=== PATIENT | male | born 1980 | race Caucasian/White ===

== ENCOUNTER 2019-11-26 15:33 | Emergency (ER) | payer BC, OTHER ==
[~2019-11-26] VITALS: Ht 177.8 cm; Wt 89.4 kg
[2019-11-26 15:46] VITALS: BP 129/76
[2019-11-26] MEDS ORDERED: OSLT75C PO (16:09)
--- NOTE | 2019-11-26 16:10 | ED Cough/URI ---
General Chief Complaint: Cough/Cold/Flu Symptoms Stated Complaint: BAKC PAIN,SORE THROAT, Nursing Triage Note: PT AMBULATE TO TRIAGE WITH C/O COUGH, BODY ACHES. PT DENIES N/V/FEVER. PT STATES SYMPTOMS STARTED LAST NIGHT. Sepsis Screen: No Definite Risk History of Present Illness Date Seen by Provider: Nov 26, 2019 Time Seen by Provider: 16:07 Initial Comments 39-year-old male presents with cough, body aches, nausea, fever, sore throat. Patient's and kids both have similar symptoms. They do report that their son tested positive for influenza A. Patient symptoms started last night. Is not having shortness of breath, chest pain vomiting or diarrhea Allergies and Home Medications Patient Home Medication List Home Medication List Reviewed: Yes Review of Systems Review of Systems Constitutional: chills, fever, malaise EENTM: throat pain Respiratory: cough Cardiovascular: No chest pain Gastrointestinal: No diarrhea; nausea; No vomiting Genitourinary: no symptoms reported Musculoskeletal: see HPI Skin: no symptoms reported Past Mlesvqh-Usswcf-Vskxsx Hx Past Med/Social Hx: Reviewed Nursing Past Med/Soc Hx Patient Social History Alcohol Use: Denies Use Recreational Drug Use: No Smoking Status: Never a Smoker 2nd Hand Smoke Exposure: No Recent Foreign Travel: No Contact w/Someone Who Travel: No Recent Infectious Disease Expo: No Recent Hopitalizations: No Physical Abuse: No Sexual Abuse: No Mistreated: No Fear: No Seasonal Allergies Seasonal Allergies: No Past Medical History Surgeries: No Respiratory: No Cardiac: No Neurological: No Genitourinary: No Gastrointestinal: No Musculoskeletal: No Endocrine: No HEENT: No Cancer: No Psychosocial: No Integumentary: No Blood Disorders: No Physical Exam Vital Signs - First Documented 11/26/19 15:46 Temp 37.3 Pulse 81 Resp 18 B/P (MAP) 129/76 (93) O2 Delivery Room Air Capillary Refill : Less Than 3 Seconds Height: '" Weight: lbs. oz. 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, normal mood/affect, oriented x 3 Skin: normal color, warm/dry Progress/Results/Core Measures Suspected Sepsis Recent Fever Within 48 Hours: No Infection Criteria Present: None New/Unexplained Altered Menta: No Sepsis Screen: No Definite Risk SIRS Temperature: Pulse: 81 Respiratory Rate: 18 Blood Pressure 129 /76 Mean: 93 Results/Orders Vital Signs/I&O 11/26/19 11/26/19 15:46 15:49 Temp 37.3 Pulse 81 Resp 18 B/P (MAP) 129/76 (93) O2 Delivery Room Air Room Air Capillary Refill : Less Than 3 Seconds Blood Pressure Mean: 93 Departure Impression Primary Impression: Influenza A Disposition: 01 HOME, SELF-CARE Condition: Stable Departure-Patient Inst. Referrals: NO,LOCAL PHYSICIAN (PCP/Family) Primary Care Physician Patient Instructions: Flu, Adult (DC) Scripts Oseltamivir Phosphate (Tamiflu) 75 Mg Cap 75 MG PO BID, #10 CAP Prov: YANCI MENDOZA DO 11/26/19 YANCI MENDOZA DO Nov 26, 2019 16:09
== END 2019-11-26 16:38 | disposition home or self-care (01) ==
LOC: ER 15:35
DX: J10.1 Influenza due to other identified influenza virus with other respiratory manifestations (principal)
CPT/HCPCS: 87804

== ENCOUNTER 2022-05-30 21:54 | Day surgery (SDC) | payer BC ==
[~2022-05-30] VITALS: Ht 178 cm; Wt 97.7 kg
[~2022-05-30 21:54] MED LIST: OSLT75C PO
[2022-05-30 22:56] LABS: CLARITY,URINE CLEAR; COLOR,URINE YELLOW; GLUCOSE, URINE (UA) NEGATIVE (NEGATIVE); KETONES,URINE NEGATIVE (NEGATIVE); LEUKOCYTE ESTERASE ,URINE NEGATIVE (NEGATIVE); NITRITE,URINE NEGATIVE (NEGATIVE); PH,URINE 6.5 (5-9); PROTEIN,URINE TRACE (NEGATIVE)
[2022-05-30 22:59] LABS: BASOPHILS % (AUTO) 1 % (0-10); EOSINOPHILS # (AUTO) 0.1 10^3/uL (0.0-0.3); EOSINOPHILS % (AUTO) 2 % (0-10); HEMATOCRIT 44 % (40-54); HEMOGLOBIN 15.1 g/dL (13.3-17.7); LYMPHOCYTES # (AUTO) 1.6 10^3/uL (1.0-4.0); LYMPHOCYTES % (AUTO) 26 % (12-44); MEAN CORPUSCULAR HEMOGLOBIN 30 pg (25-34); MEAN CORPUSCULAR HGB CONC 34 g/dL (32-36); MEAN CORPUSCULAR VOLUME 89 fL (80-99); MEAN PLATELET VOLUME 10.7 fL (9.0-12.2); MONOCYTES # (AUTO) 0.7 10^3/uL (0.0-1.0); MONOCYTES % (AUTO) 11 % (0-12); NEUTROPHILS # (AUTO) 3.7 10^3/uL (1.8-7.8); NEUTROPHILS % (AUTO) 60 % (42-75); PLATELET COUNT 255 10^3/uL (130-400); WHITE BLOOD COUNT 6.1 10^3/uL (4.3-11.0)
[2022-05-30 23:06] LABS: ALBUMIN 4.3 GM/DL (3.2-4.5)
[2022-05-30 23:07] LABS: POTASSIUM 4.2 MMOL/L (3.6-5.0)
[2022-05-30 23:08] LABS: CALCIUM 9.5 MG/DL (8.5-10.1)
[2022-05-30 23:09] LABS: TOTAL PROTEIN 7.2 GM/DL (6.4-8.2)
[2022-05-30 23:11] LABS: BILIRUBIN,TOTAL 0.9 MG/DL (0.1-1.0)
[2022-05-30 23:13] LABS: CREATININE SERUM 1.64 MG/DL (0.60-1.30)
[2022-05-30 23:16] LABS: BILIRUBIN,URINE NEGATIVE (NEGATIVE)
[2022-05-30 23:20] LABS: BACTERIA,URINE NEGATIVE /HPF; SQUAMOUS EPITHELIAL CELL,UR 0-2 /HPF
[2022-05-31] VITALS (13 sets, daily range): BP systolic 122–161; BP diastolic 79–100
[2022-05-31] MEDS ORDERED: HOLD METFORMIN - RECEIVED CONTRAST 20 ML VIAL IV SCH (01:30)
[2022-05-31] MEDS ORDERED: NS 100 ML (IVPB) BAG IV ONE (01:30)
[2022-05-31] MEDS ORDERED: IOHEXOL 350 MG/ML 100 ML (OMNIPAQUE 350) VIAL IV ONE (01:30)
[2022-05-31] MEDS ORDERED: LACTATED RINGERS 1,000 ML IV ONE (02:24)
[2022-05-31] MEDS ORDERED: KETOROLAC 30 MG/ML VIAL IV PRN (02:45)
[2022-05-31] MEDS ORDERED: ONDANSETRON 4 MG/2 ML (SDV) Z0FRAN IV PRN (02:45)
[2022-05-31] MEDS ORDERED: fentaNYL INJ 100 MCG/2 ML AMP IV PRN (02:45)
[2022-05-31] MEDS: LACTATED RINGERS 1,000 ML IV SCH ×3 (03:02→14:43)
--- NOTE | 2022-05-31 05:26 | ED Abdominal Pain ---
General Chief Complaint: Abdominal/GI Problems Stated Complaint: INCARCERATED UMBILICAL HERNIA Nursing Triage Note: C/O PROTRUDING BELLY BUTTON, & CHANGE IN ABDOMINAL SHAPE WITH SITUPS X1 WEEK. DENIES GI/ SYMPTOMS. 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 NO UNUSUAL ACTIVITY OR LIFTING ANYTHING MORE THAN NORMAL NO HISTORY OF SIMILAR NO NAUSEA/VOMITING/DIARRHEA NO FEVER NO URINARY SYMPTOMS PT HAS NO MEDICAL PROBLEMS OF ANY KIND, AND DOES NOT TAKE ANY MEDICATIONS NO PRIOR ABDOMINAL SURGERIES HAS NOT SOUGHT CARE UNTIL TONIGHT HAS NOT TAKEN ANYTHING FOR PAIN SYMPTOMS ARE NOT ANY DIFFERENT TONIGHT, STATES HE JUST THOUGHT HE SHOULD GET IT CHECKED BEFORE HE DOES HIS "PT" TEST NEXT WEEK. PCP: NONE Allergies and Home Medications Allergies Coded Allergies: No Known Drug Allergies (Unverified , 05/30/22) Patient Home Medication List Home Medication List Reviewed: Yes No Active Prescriptions or Reported Meds Review of Systems Review of Systems Constitutional: no symptoms reported EENTM: No Symptoms Reported Respiratory: No Symptoms Reported Cardiovascular: No Symptoms Reported Gastrointestinal: See HPI Genitourinary: No Symptoms Reported Musculoskeletal: no symptoms reported Skin: no symptoms reported Psychiatric/Neurological: No Symptoms Reported Endocrine: No Symptoms Reported Hematologic/Lymphatic: No Symptoms Reported Past Uoxkdnd-Nfzrsb-Kldpqe Hx Patient Social History Tobacco Use?: No Smoking Status: Never a Smoker Smokeless Tobacco Frequency: Never a User Use of E-Cig and/or Vaping dev: No Substance use?: No Alcohol Use?: No Pt feels they are or have been: No Immunizations Up To Date Tetanus Booster (TDap): Less than 5yrs First/Initial COVID19 Vaccinat: 10/17 Second COVID19 Vaccination Aubrey: 11/17 Seasonal Allergies Seasonal Allergies: No Past Medical History Surgery/Hospitalization HX: DENIES Surgeries: Yes (WISDOM TEETH) Respiratory: No (HAD COVID IN THE LAST YEAR--NO HOSPITALIZATION) Cardiac: No Neurological: No Genitourinary: No Gastrointestinal: No Musculoskeletal: No Endocrine: No HEENT: No Cancer: No Psychosocial: No Integumentary: No Blood Disorders: No Physical Exam Vital Signs Vital Signs - First Documented 05/30/22 22:28 Temp 37.0 Pulse 62 Resp 16 B/P (MAP) 137/89 (105) Pulse Ox 99 O2 Delivery Room Air Capillary Refill : Less Than 3 Seconds Height/Weight/BMI Height: '" Weight: lbs. oz. kg; 30.83 BMI Method: General Appearance: WD/WN, no apparent distress, other (STUTTERING SPEECH) HEENT: PERRL/EOMI Neck: normal inspection Respiratory: normal breath sounds, no respiratory distress, no accessory muscle use Cardiovascular: regular rate, rhythm, no murmur Gastrointestinal: normal bowel sounds, soft; No distended, No guarding, No rebound; tenderness (MILD PERIUMBILICAL TENDERNESS. ), hernia (SOFT UMBILICAL HERNIA THAT EASILY REDUCES, BUT PT HAD MUCH DISCOMFORT WITH IT. 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, no motor/sensory deficits, alert, normal mood/affect, oriented x 3 Skin: normal color, warm/dry Progress/Results/Core Measures Results/Orders Lab Results Laboratory Tests Test 05/30/22 22:45 05/30/22 22:50 Range/Units White Blood Count 6.1 4.3-11.0 10^3/uL Red Blood Count 4.96 4.30-5.52 10^6/uL Hemoglobin 15.1 13.3-17.7 g/dL Hematocrit 44 40-54 % Mean Corpuscular Volume 89 80-99 fL Mean Corpuscular Hemoglobin 30 25-34 pg Mean Corpuscular Hemoglobin Concent 34 32-36 g/dL Red Cell Distribution Width 12.8 10.0-14.5 % Platelet Count 255 130-400 10^3/uL Mean Platelet Volume 10.7 9.0-12.2 fL Immature Granulocyte % (Auto) 0 % Neutrophils (%) (Auto) 60 42-75 % Lymphocytes (%) (Auto) 26 12-44 % Monocytes (%) (Auto) 11 0-12 % Eosinophils (%) (Auto) 2 0-10 % Basophils (%) (Auto) 1 0-10 % Neutrophils # (Auto) 3.7 1.8-7.8 10^3/uL Lymphocytes # (Auto) 1.6 1.0-4.0 10^3/uL Monocytes # (Auto) 0.7 0.0-1.0 10^3/uL Eosinophils # (Auto) 0.1 0.0-0.3 10^3/uL Basophils # (Auto) 0.0 0.0-0.1 10^3/uL Immature Granulocyte # (Auto) 0.0 0.0-0.1 10^3/uL Sodium Level 140 135-145 MMOL/L Potassium Level 4.2 3.6-5.0 MMOL/L Chloride Level 105 98-107 MMOL/L Carbon Dioxide Level 24 21-32 MMOL/L Anion Gap 11 5-14 MMOL/L Blood Urea Nitrogen 21 H 7-18 MG/DL Creatinine 1.64 H 0.60-1.30 MG/DL Estimat Glomerular Filtration Rate 54 BUN/Creatinine Ratio 13 Glucose Level 99 70-105 MG/DL Calcium Level 9.5 8.5-10.1 MG/DL Corrected Calcium 9.3 8.5-10.1 MG/DL Total Bilirubin 0.9 0.1-1.0 MG/DL Aspartate Amino Transf (AST/SGOT) 32 5-34 U/L Alanine Aminotransferase (ALT/SGPT) 59 H 0-55 U/L Alkaline Phosphatase 86 40-136 U/L Total Protein 7.2 6.4-8.2 GM/DL Albumin 4.3 3.2-4.5 GM/DL Amylase Level 53 25-125 U/L Lipase 24 8-78 U/L Urine Color YELLOW Urine Clarity CLEAR Urine pH 6.5 5-9 Urine Specific Devine >=1.030 1.016-1.022 Urine Protein TRACE H NEGATIVE Urine Glucose (UA) NEGATIVE NEGATIVE Urine Ketones NEGATIVE NEGATIVE Urine Nitrite NEGATIVE NEGATIVE Urine Bilirubin NEGATIVE NEGATIVE Urine Urobilinogen 2.0 < = 1.0 MG/DL Urine Leukocyte Esterase NEGATIVE NEGATIVE Urine RBC (Auto) NEGATIVE NEGATIVE Urine RBC NONE /HPF Urine WBC NONE /HPF Urine Squamous Epithelial Cells 0-2 /HPF Urine Crystals NONE /LPF Urine Bacteria NEGATIVE /HPF Urine Casts NONE /LPF Urine Mucus MODERATE H /LPF Urine Culture Indicated NO My Orders Orders - AMBROSIO CADET DO Ed Iv/Invasive Line Start (05/30/22 22:38) Amylase (05/30/22 22:38) Cbc With Automated Diff (05/30/22 22:38) Comprehensive Metabolic Panel (05/30/22 22:38) Lipase (05/30/22 22:38) Ua Culture If Indicated (05/30/22 22:38) Ct Abdomen/Pelvis W (05/31/22 00:01) Iohexol Injection (Omnipaque 350 Mg/Ml 1 (05/31/22 01:30) Received Contrast (Hold Metformin- Contr (05/31/22 01:30) Ns (Ivpb) (Sodium Chloride 0.9% Ivpb Bag (05/31/22 01:30) Medications Given in ED Current Medications Medications Dose Ordered Sig/Aditya Route Start Time Stop Time Status Last Admin Dose Admin Iohexol 100 ml ONCE ONCE IV 05/31/22 01:30 05/31/22 01:34 DC 05/31/22 01:26 100 ML Sodium Chloride 100 ml ONCE ONCE IV 05/31/22 01:30 05/31/22 01:34 DC 05/31/22 01:26 80 ML Vital Signs/I&O 05/30/22 05/31/22 22:28 00:10 Temp 37.0 Pulse 62 61 Resp 16 14 B/P (MAP) 137/89 (105) 138/56 (83) Pulse Ox 99 100 O2 Delivery Room Air Room Air Blood Pressure Mean: 112 Progress Progress Note : Progress Note UNEVENTFUL ER STAY PT DECLINED ANY PAIN MEDICATIONS DURING ER STAY Diagnostic Imaging Comments ABDOMEN XRAYS--NO ACUTE PROCESS, PENDING RADIOLOGIST REVIEW CT ABDOMEN/PELVIS--PER STAT RAD VIA FAX AT 0141 -SMALL UMBILICAL HERNIA CONTAINING FAT, THERE ARE SOME INFLAMMATORY CHANGES NOTED WITHIN THE FAT, MAY REPRESENT INCARCERATION OF THE FAT. -FATTY INFILTRATION OF LIVER -MILD SPLENOMEGALY Reviewed: Reviewed by Me Departure Communication (Admissions) 0150--SPOKE WITH DR. PRATHER, ACCEPTS PT FOR ADMIT. ORDERS NOTED. Impression Primary Impression: Incarcerated umbilical hernia Disposition: ADMITTED INPATIENT Condition: Stable Admissions Decision to Admit Reason: Admit from ER (General) Decision to Admit/Date: May 31, 2022 Time/Decision to Admit Time: 01:50 Departure-Patient Inst. Referrals: NO,LOCAL PHYSICIAN (PCP) Primary Care Physician Scripts No Active Prescriptions or Reported Meds AMBROSIO CADET DO May 31, 2022 05:26
--- NOTE | 2022-05-31 07:30 | Diagnostic Imaging Report ---
EXAMINATION: CT abdomen and pelvis with intravenous contrast. TECHNIQUE: Multiple contiguous axial images were obtained through the abdomen and pelvis after the uneventful administration of intravenous contrast. All CT scans use one or more of the following dose optimizing techniques: automated exposure control, MA and/or KvP adjustment based on patient size and exam type or iterative reconstruction. HISTORY: Abdominal pain. Hernia. COMPARISON: None available. FINDINGS: The heart is unremarkable. The included lung bases are clear. There is hepatic steatosis. No focal hepatic lesions are seen. The gallbladder is nondistended. The portal vein is patent. The spleen, pancreas, adrenal glands, and kidneys have a normal appearance. There is no pathologically enlarged mesenteric or retroperitoneal adenopathy. The bowel loops are nondilated. There is no free fluid or free air. No acute osseous abnormalities. Ureters and bladder are grossly normal. There is no free air, loculated collection, or adenopathy in the pelvis. IMPRESSION: 1. No evidence of bowel obstruction. No free fluid or free air. 2. Small fat-containing periumbilical hernia. No entrapped loops of bowel are visualized. A small amount of associated inflammation is seen within the hernia sac. 3. Hepatic steatosis. No focal hepatic lesions. Dictated by: Dictated on workstation # [id number]
--- NOTE | 2022-05-31 11:09 | Consultation - Surgery ---
ALEXIS WRIGHT 05/31/22 1109: History of Present Illness History of Present Illness Patient Consulted On(josé luis/time) 05/31/22 11:09 Date Seen by Provider: May 31, 2022 Time Seen by Provider: 11:20 History of Present Illness 41yo male presented to the [facility] ED on 05/30 because he thought he had a hernia. He is currently not in any pain and stated the only time he experienced pain was when the ED physician was attempting to reduce the hernia last night. Allergies and Home Medications Allergies Coded Allergies: No Known Drug Allergies (Unverified , 05/30/22) Patient Home Medication List No Active Prescriptions or Reported Meds Past Xhrjvfr-Tdmqzt-Rimull Hx Patient Social History Smoking Status: Never a Smoker 2nd Hand Smoke Exposure: No Recent Hopitalizations: No Alcohol Use?: No Have you traveled recently?: No Immunizations Up To Date Tetanus Booster (TDap): Less than 5yrs Seasonal Allergies Seasonal Allergies: No Surgeries History of Surgeries: Yes (WISDOM TEETH) Respiratory History of Respiratory Disorde: No (HAD COVID IN THE LAST YEAR--NO HOSPITALIZATION) Cardiovascular History of Cardiac Disorders: No Neurological History of Neurological Disord: No Genitourinary History of Genitourinary Disor: No Gastrointestinal History of Gastrointestinal Di: No Musculoskeletal History of Musculoskeletal Dis: No Endocrine History of Endocrine Disorders: No HEENT History of HEENT Disorders: No Cancer History of Cancer: No Psychosocial History of Psychiatric Problem: No Integumentary History of Skin or Integumenta: No Blood Transfusions History of Blood Disorders: No Family Medical History Significant Family History: Diabetes (father T2DM, thinks mom did too), Other Conditions/Hx (No HTN, paternal grandpa had colon cancer) Review of Systems-General Constitutional: No chills, No fever Respiratory: No short of breath Cardiovascular: No chest pain Gastrointestinal: No abdominal pain, No hematemesis, No melena, No nausea, No vomiting Physical Exam-General Problems Physical Exam Vital Signs Vital Signs - First Documented 05/30/22 22:28 Temp 37.0 Pulse 62 Resp 16 B/P (MAP) 137/89 (105) Pulse Ox 99 O2 Delivery Room Air Capillary Refill : Less Than 3 Seconds General Appearance: no apparent distress, obese Neck: non-tender; No lymphadenopathy (R), No lymphadenopathy (L) Respiratory: lungs clear, normal breath sounds, no respiratory distress, no accessory muscle use Cardiovascular: regular rate, rhythm, no murmur Peripheral Pulses: 2+ Radial Pulses (R), 2+ Radial Pulses (L) Gastrointestinal: non tender, soft, hernia (umbilical, no signs of ischemia, no discharge, no erythema) Neurologic/Psychiatric: alert, oriented x 3, other (stutter) Data Review Labs Laboratory Tests 05/30/22 22:45: White Blood Count 6.1, Red Blood Count 4.96, Hemoglobin 15.1, Hematocrit 44, Mean Corpuscular Volume 89, Mean Corpuscular Hemoglobin 30, Mean Corpuscular Hemoglobin Concent 34, Red Cell Distribution Width 12.8, Platelet Count 255, Mean Platelet Volume 10.7, Immature Granulocyte % (Auto) 0, Neutrophils (%) (Auto) 60, Lymphocytes (%) (Auto) 26, Monocytes (%) (Auto) 11, Eosinophils (%) ( Auto) 2, Basophils (%) (Auto) 1, Neutrophils # (Auto) 3.7, Lymphocytes # (Auto) 1.6, Monocytes # (Auto) 0.7, Eosinophils # (Auto) 0.1, Basophils # (Auto) 0.0, Immature Granulocyte # (Auto) 0.0, Sodium Level 140, Potassium Level 4.2, Chloride Level 105, Carbon Dioxide Level 24, Anion Gap 11, Blood Urea Nitrogen 21H, Creatinine 1.64H, Estimat Glomerular Filtration Rate 54, BUN/Creatinine Ratio 13, Glucose Level 99, Calcium Level 9.5, Corrected Calcium 9.3, Total Bilirubin 0.9, Aspartate Amino Transf (AST/SGOT) 32, Alanine Aminotransferase (ALT/SGPT) 59H, Alkaline Phosphatase 86, Total Protein 7.2, Albumin 4.3, Amylase Level 53, Lipase 24 05/30/22 22:50: Urine Color YELLOW, Urine Clarity CLEAR, Urine pH 6.5, Urine Specific [place] >=1.030, Urine Protein TRACEH, Urine Glucose (UA) NEGATIVE, Urine Ketones NEGATIVE, Urine Nitrite NEGATIVE, Urine Bilirubin NEGATIVE, Urine Urobilinogen 2.0, Urine Leukocyte Esterase NEGATIVE, Urine RBC (Auto) NEGATIVE, Urine RBC NONE, Urine WBC NONE, Urine Squamous Epithelial Cells 0-2, Urine Crystals NONE, Urine Bacteria NEGATIVE, Urine Casts NONE, Urine Mucus MODERATEH, Urine Culture Indicated NO Assessment/Plan Assessment/Plan Assessment/Plan Umbilical hernia Surgery to repair umbilical hernia. Keep patient NPO. KATHY SUTHERLAND DO 05/31/22 1421: History of Present Illness History of Present Illness Time Seen by Provider: 12:46 History of Present Illness Surgery asked to admit pt for possible strangulated hernia. HPI per ED: PT ARRIVES VIA POV FROM HOME STATES HE THINKS HE HAS A HERNIA, PT IS IN THE AND EXERCISES ON A REGULAR BASIS, AND IS TO HAVE A "PT" TEST THIS WEEK, PT STATES FOR THE LAST FEW WEEKS WHEN HE DOES SIT UPS, HIS ABDOMEN CHANGES SHAPE--STATES HIS ABDOMEN LOOKS MUCH DIFFERENT THAN NORMAL WHEN HE DOES SIT UPS, AND HAS HAD SOME SORENESS TO MID ABDOMINAL AREA FOR THE FEW DAYS, HE HAS NOTICED THAT HIS BELLY BUTTON IS PROTRUDING AND IS SORE. NO UNUSUAL ACTIVITY OR LIFTING ANYTHING MORE THAN NORMAL, NO HISTORY OF SIMILAR, NO NAUSEA/VOMITING/DIARRHEA, NO FEVER, NO URINARY SYMPTOMS When I spoke to the patient and his today in his room he appeared comfortable. They state that they have only seen his protrusion of the bellybutton in the past few weeks. His states he has always had "an innie". He states the pain was more of a pulling that he has never had before any would not want to have again. But he only rated as a 6-7 out of 10 on a 1- 10 scale. It was worse with lifting. He denies that his abdomen was ever red, denied any vomiting or abdominal distention and no problems with bowel movements. He was also able to eat. Patient does not think he has ever been told he has a hernia before, he is in the and has a PT test coming up next week. Allergies and Home Medications Allergies Coded Allergies: No Known Drug Allergies (Unverified , 05/30/22) Patient Home Medication List Home Medication List Reviewed: Yes No Active Prescriptions or Reported Meds Past Wvkutvc-Mirfko-Ynmejs Hx Patient Social History Smoking Status: Never a Smoker Alcohol Use?: No Immunizations Up To Date Tetanus Booster (TDap): Less than 5yrs Surgeries History of Surgeries: Yes (lipoma removal) Respiratory History of Respiratory Disorde: No Cardiovascular History of Cardiac Disorders: No Neurological History of Neurological Disord: No Genitourinary History of Genitourinary Disor: No Gastrointestinal History of Gastrointestinal Di: No Musculoskeletal History of Musculoskeletal Dis: No Endocrine History of Endocrine Disorders: No HEENT History of HEENT Disorders: No Loss of Vision: Denies Hearing Impairment: Denies Cancer History of Cancer: No Psychosocial History of Psychiatric Problem: No Integumentary History of Skin or Integumenta: No Family Medical History Significant Family History: Diabetes (father T2DM, thinks mom did too), Other Conditions/Hx (No HTN, paternal grandpa had colon cancer) Review of Systems-General Constitutional: No chills, No fever, No weakness EENTM: No vision loss, No mouth swelling, No epistaxis Respiratory: No cough, No dyspnea on exertion, No short of breath Cardiovascular: No chest pain, No palpitations Gastrointestinal: abdominal pain; No constipation, No hematemesis, No melena, No nausea, No vomiting Genitourinary: No dysuria, No frequency, No hematuria Musculoskeletal: No joint pain, No muscle pain, No muscle stiffness Skin: No change in color, No change in hair/nails Psychiatric/Neurological: Denies Anxiety, Denies Depressed, Denies Seizure, Denies Tremors Physical Exam-General Problems Physical Exam General Appearance: no apparent distress, obese Eyes: Bilateral Eye PERRL, Bilateral Eye EOMI HEENT: pharynx normal; No scleral icterus (R), No scleral icterus (L); other (pt has mild stutter) Neck: non-tender, supple Respiratory: lungs clear, normal breath sounds, no respiratory distress, no accessory muscle use Cardiovascular: regular rate, rhythm, no murmur Peripheral Pulses: 2+ Radial Pulses (R), 2+ Radial Pulses (L) Gastrointestinal: non tender, soft, no organomegaly, hernia (umbilical, no signs of ischemia, no discharge, no erythema) Rectal: deferred Back: no CVA tenderness, no vertebral tenderness Extremities: no pedal edema, no calf tenderness, normal capillary refill Neurologic/Psychiatric: 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 TECHNIQUE: Multiple contiguous axial images were obtained through the abdomen and pelvis after the uneventful administration of intravenous contrast. All CT scans use one or more of the following dose optimizing techniques: automated exposure control, MA and/or KvP adjustment based on patient size and exam type or iterative reconstruction. HISTORY: Abdominal pain. Hernia. COMPARISON: None available. FINDINGS: The heart is unremarkable. The included lung bases are clear. There is hepatic steatosis. No focal hepatic lesions are seen. The gallbladder is nondistended. The portal vein is patent. The spleen, pancreas, adrenal glands, and kidneys have a normal appearance. There is no pathologically enlarged mesenteric or retroperitoneal adenopathy. The bowel loops are nondilated. There is no free fluid or free air. No acute osseous abnormalities. Ureters and bladder are grossly normal. There is no free air, loculated collection, or adenopathy in the pelvis. IMPRESSION: 1. No evidence of bowel obstruction. No free fluid or free air. 2. Small fat-containing periumbilical hernia. No entrapped loops of bowel are visualized. A small amount of associated inflammation is seen within the hernia sac. 3. Hepatic steatosis. No focal hepatic lesions. Dictated by: Dictated on workstation # [id number] Dict: 05/31/22718 Trans: 05/31/22729 [facility] [id number] Interpreted by: NOEL LEON DO Electronically signed by: NOEL LEON DO 05/31/2230 Assessment/Plan Assessment/Plan Assessment/Plan Incarcerated Umbilical hernia - possibly recently strangulated I had a long discussion with the patient and his going over their options to treat his current condition. One option would be to do nothing and send him home. A second option would be to go to surgery; laparoscopic umbilical herniorrhaphy with mesh placement possible open. I went over the CAT scan findings with the patient and his explaining the mild inflammation we saw the difference between reducible incarcerated and strangulated hernias. I also went over the difference between fixing it and not fixing it. Patient mentioned that he thinks he has a another hernia in the midline and based on what he is describing and his physical exam he has a diastases recti. I explained the difference between this and a real hernia. I explained that if he had never had pain he might not need to have this hernia repaired; but, now it is bulged out and caused pain which may have indicated that it was strangulated at one point. He also was questioning whether he would ever have the pulling sensation again and I explained to him that it is possible he could have the pulling sensation, but most likely he would not. We talked about mesh failure and what would happen if the mesh did not work. I told him that mesh fails about 3 to 5% of the time and if we only did suture repair that has a 50% failure rate. After giving patient all the options and answering all the questions they would like to proceed with surgery. I went over risks and complications not limited to pain, bleeding, infection, scar, damage to intestine and need for further procedure. All questions answered to their to their satisfaction. We will go to the operating room today he will get IV fluids, IV antibiotics on-call to the OR and then hopefully will be able to go home today. I reviewed the CT images myself and discussed case with ER physician. I think he may also have inguinal hernias and told them I would look during procedure. Supervisory-Addendum Brief Verification & Attestation Participated in pt care: history, MDM, physical Personally performed: exam, history, MDM, supervision of care Care discussed with: Medical Student Procedures: n/a Verification and Attestation of Medical Student E/M Service A medical student performed and documented this service. I then reviewed and verified all information documented by the medical student and made modifications to such information, when appropriate. I personally performed a physical exam, medical decision making and then discussed any differences between the notes and made revisions as necessary to create one note. Kathy Sutherland , 05/31/22 , 14:29 ALEXIS WRIGHT May 31, 2022 11:09 KATHY SUTHERLAND DO May 31, 2022 14:21
[2022-05-31] MEDS ORDERED: LIDOCAINE/EPI 2% 1:200,00 (XYLOCAINE) 20 ML VIAL ONE (13:54)
[2022-05-31] MEDS ORDERED: ceFAZolin INJECTION 2,000 MG in NS (IVPB) 50 ML IV SCH (14:00)
[2022-05-31] MEDS ORDERED: MIDAZOLAM 2 MG/2 ML (VERSED) VIAL ONE (14:20)
[2022-05-31] MEDS ORDERED: proPOfol 200 MG/20 ML (DIPRIVAN) VIAL IV ONE (14:20)
[2022-05-31] MEDS ORDERED: ONDANSETRON 4 MG/2 ML (SDV) Z0FRAN ONE (14:20)
[2022-05-31] MEDS ORDERED: fentaNYL INJ 100 MCG/2 ML AMP ONE (14:20)
[2022-05-31] MEDS ORDERED: LIDOCAINE PF 2% 5 ML (XYLOCAINE) VIAL ONE (14:20)
[2022-05-31] MEDS ORDERED: ROCURONIUM 50 MG/5 ML (ZEMURON) VIAL IV ONE (14:20)
[2022-05-31] MEDS ORDERED: ceFAZolin INJECTION 2,000 MG ONE (14:27)
[2022-05-31] MEDS ORDERED: HYDROmorphone 2 MG/ML VIAL (DILAUDID) IV ONE (14:45)
[2022-05-31] MEDS ORDERED: morphine INJ 10 MG/ML 1ML (SYR OR VIAL) IVP ONE (14:45)
[2022-05-31] MEDS ORDERED: LACTATED RINGERS 1,000 ML IV PRN ×2 (14:45→15:45)
[2022-05-31] MEDS ORDERED: PROMETHAZINE INJ 25 MG/ML (PHENERGAN) AMP IVP ONE (14:45)
[2022-05-31] MEDS ORDERED: ONDANSETRON 4 MG/2 ML (SDV) Z0FRAN IVP PRN (14:45)
[2022-05-31] MEDS ORDERED: MEPERIDINE (DEMEROL) INJ 50 MG/ML IVP ONE (14:45)
[2022-05-31] MEDS ORDERED: HYDROmorphone 2 MG/ML VIAL (DILAUDID) ONE (15:18)
[2022-05-31] MEDS ORDERED: SEVOFLURANE (ULTANE) 15 ML INHAL SOLN ONE (16:00)
--- NOTE | 2022-05-31 16:15 | Progress Note-Post Operative ---
Post-Operative Progess Note Surgeon (s)/Shelf Filler (s) Surgeon KATHY PRATHER DO Shelf Filler: YUSEF Elizabeth Pre-Operative Diagnosis Incarcerated Umbilical Hernia - possibly strangulated Post-Operative Diagnosis same Procedure & Operative Findings Date of Procedure 05/31/22 Procedure Performed/Findings PROCEDURE: Laparoscopic Umbilical hernia repair with mesh. COMPLICATIONS: None. INDICATIONS: The patient is a 41, male with an incarcerated umbilical hernia, which has "popped up all of a suddent" and is causing discomfort. The patient was explained the risk and benefits of the procedure and wished to proceed with the procedure. Consent was signed on the chart. DESCRIPTION OF PROCEDURE: The patient was taken into the operating suite, prepped and draped in sterile fashion. Surgical pause was performed. Local anesthetic was infiltrated in left upper quadrant. A #11 blade scalpel was used to make a small skin incision. Cautery was used to dissect down to the fascia, which was then scored and divided the muscle, went through the posterior sheath and a balloon trocar was inserted into the abdomen. The abdomen was then insufflated. Incarcerated umbilical hernia was found, easily reduced and could see edema around the fat that was taken out; this means it most likely was strangulated for small period of time. A 5 mm trocar was placed in the right lower quadrant and a 5 mm trocar was placed in left lower quadrant. Echo Ventralight mesh was then inserted in the abdomen grabbed through the stab incision. The balloon was inflated on the mesh. Circumferential tacks were placed with a SecureStrap Tacker. The balloon was then removed and inner crown was created as well. The mesh was tacked with pressure being decreased. The 12 mm fascial defect was then closed using 0 Vicryl. The abdomen was then desufflated,the trocars were removed. The skin was then closed using 4-0 Monocryl in a running subcuticular fashion. The abdomen was washed and dried and Skin Affix was placed over the incisions. The patient tolerated procedure well without any complications. He was taken to recovery room in stable condition. Anesthesia Type GET Estimated Blood Loss Estimated blood loss (mL): scant Specimens/Packing Specimens Removed none KATHY PRATHER DO May 31, 2022 16:15
[2022-05-31] MEDS ORDERED: ACHD5005 PO (16:16)
--- NOTE | 2022-05-31 16:18 | Discharge Inst-Surgical ---
Discharge Inst-Surgical Depart Medication/Instructions New, Converted or Re-Newed RX: Transmitted to Pharmacy Patient Instructions Follow up Appt: Make appointment for 1 week. [phone] Instructions: No lifting greater than 20 pounds. No strenuous activity. May shower in 24 hours, no tub bath or soaking. Use incentive spirometer at home as directed. No Smoking Skin/Wound Care: May remove bandages in am. You need to leave the Dermabond on incision it will fall off on it's own. Symptoms to Report: Appetite Changes, Extremity Discoloration, Numbness/Tingling, Swelling Increased, Bleeding Excessive, Eyesight Changes, Pain Increased, Urine Color Change, Constipation(Persistent), Fever over 101 degree F, Pain/Pressure in chest, Urinating Difficulty, Cough Up/Vomit Blood, Heart Beat Irreg/Pounding, Pain/Pressure in jaw, Cramps in feet or legs, Lightheadedness, Pain/Pressure in shoulder, Diarrhea(Persistent), Memory Changes Suddenly, Questions/Concerns, Weight gain consecutive days, Dizziness/Fainting, Nausea/Vomiting, Shortness of Breath, Weight gain over 2 pounds If questions or concerns contact your physician Or seek help at emergency department. Activity Activity as Tolerated: Yes Activity Instructions: Avoid Stress to Incision Driving Instructions: No Driving/Refer to Dr. Garcia Discharge Diet: No Restrictions Diet After 24 Hours: Clear Liquid if Nauseous If Any Problems/Questions/Issu: Contact Your Physician, Go to Emergency Room Skin/Wound Care Infection Signs and Symptoms: Increased Redness, Foul Odor of Wound, Increased Drainage, Skin Itchy or Has a Rash, Increased Swelling, Temperature Above 101 F Wound Care Comment: heating pad to shoulder or neck tonight for pain Bathing Instructions: Shower Stitches/[place]/Dermabond Dis: Dermabond KATHY PRATHER DO May 31, 2022 16:18
--- NOTE | 2022-05-31 18:43 | Anesthesia-General Post-Op ---
General Patient Condition Mental Status/LOC: Same as Preop Cardiovascular: Satisfactory Nausea/Vomiting: Absent Respiratory: Satisfactory Pain: Controlled Complications: Absent Post Op Complications Complications None Follow Up Care/Instructions Patient Instructions None needed. Anesthesia/Patient Condition Patient Condition Patient is doing well, no complaints, stable vital signs, no apparent adverse anesthesia problems. No complications reported per nursing. JACK BENTLEY CRNA May 31, 2022 18:43
== END 2022-05-31 20:40 | disposition home or self-care (01) ==
LOC: EDUNIT# 21:54 → ER 21:57 → SDC 21:58 → 4TH 21:58 → UNDOADMOB 05-31 01:50 → UNDODISOB 05-31 20:40 → SDC 05-31 20:40
PROVIDERS: ATTEND Surgery
DX: K42.0 Umbilical hernia with obstruction, without gangrene (principal); E66.9 Obesity, unspecified; Z68.30 Body mass index [BMI] 30.0-30.9, adult
CPT/HCPCS: 36415; 74177; 80053; 81000; 82150; 83690; 85025; 87081; 96375